=== PATIENT | male | born 1985 | race Caucasian/White ===

== ENCOUNTER 2016-10-09 14:24 | Emergency (ER) | payer MEDICAID ==
[~2016-10-09] VITALS: Ht 182.9 cm; Wt 116.0 kg
[2016-10-09] MEDS ORDERED: SODIUM CHLORIDE 0.9% 1,000 ML IV ONE (19:15)
[2016-10-09 19:38] LABS: CARBON DIOXIDE 28 mEq/L (21-32); CHLORIDE 106 mEq/L (98-107)
[2016-10-09 23:41] VITALS: BP 121/74
== END 2016-10-09 23:44 | disposition home or self-care (01) ==
LOC: ER 19:38
DX: S00.83XA Contusion of other part of head, initial encounter (principal); V18.0XXA Pedal cycle driver injured in noncollision transport accident in nontraffic accident, initial encounter; Y93.55 Activity, bike riding; Y92.89 Other specified places as the place of occurrence of the external cause; R03.0 Elevated blood-pressure reading, without diagnosis of hypertension; Z98.890 Other specified postprocedural states
CPT/HCPCS: 36415; 70450; 80048; 99285; J7030; Z7610

== ENCOUNTER 2019-04-20 07:07 | Emergency (ER) | payer MEDICAID ==
[~2019-04-20] VITALS: Ht 182.9 cm; Wt 109.0 kg
[2019-04-20 09:46] LABS: CLARITY URINE CLEAR (CLEAR); COLOR URINE YELLOW (YELLOW); KETONES URINE NEGATIVE (NEGATIVE); LEUKOCYTE ESTERASE URINE NEGATIVE (NEGATIVE); NITRITE URINE NEGATIVE (NEGATIVE); OCCULT BLOOD URINE NEGATIVE (NEGATIVE); PH URINE 5.5 (4.5-8.0); PROTEIN URINE NEGATIVE (NEGATIVE); SPECIFIC GRAVITY URINE 1.019 (1.005-1.030); UROBILINOGEN URINE 0.2 E.U./dL (0.2-1.0)
[2019-04-20 11:12] VITALS: BP 120/81
== END 2019-04-20 11:15 | disposition home or self-care (01) ==
LOC: ER 07:07
DX: K62.89 Other specified diseases of anus and rectum (principal); K64.4 Residual hemorrhoidal skin tags; N50.82 Scrotal pain; G89.29 Other chronic pain; R10.9 Unspecified abdominal pain; Z90.49 Acquired absence of other specified parts of digestive tract; Z90.89 Acquired absence of other organs; Z98.890 Other specified postprocedural states
CPT/HCPCS: 76870; 81003; 93976; 99284; Z7610